=== PATIENT | female | born 1980 | race Caucasian/White ===

== ENCOUNTER → 2024-05-27 07:55 | Outpatient (REF) | payer BC, SELFPAY | LOC: HWWDC 07:55 | PROVIDERS: ATTENDING PHYSICIAN Nurse Practitioner | DX: Z12.31 Encounter for screening mammogram for malignant neoplasm of breast (principal) | CPT/HCPCS: 77063; 77067 ==

== ENCOUNTER → 2024-07-16 16:07 | Outpatient (REF) | payer BC, SELFPAY | LOC: RAD 16:07 | PROVIDERS: ATTENDING PHYSICIAN Nurse Practitioner | DX: M79.662 Pain in left lower leg (principal) | CPT/HCPCS: 93971 ==